=== PATIENT | female | born 1975 | race Caucasian/White ===

== ENCOUNTER 2018-07-02 05:37 | Day surgery (SDC) | payer MEDICAID ==
[2018-07-01 14:44] LABS: BASOPHILS % (AUTO) 0.7 % (0-1); EOSINOPHILS # (AUTO) 0.1 X10'3 (0-0.9); EOSINOPHILS % (AUTO) 1.4 % (0-6); LYMPHOCYTES # (AUTO) 2.4 X10'3 (1.1-4.8); LYMPHOCYTES % (AUTO) 36.2 % (21-51); MEAN CORPUSCULAR HEMOGLOBIN 30.5 PG (27.0-31.0); MEAN CORPUSCULAR HGB CONC 33.5 g/dL (33.0-36.5); MEAN CORPUSCULAR VOLUME 90.9 FL (78-98); MEAN PLATELET VOLUME 7.6 FL (7.4-10.4); MONOCYTES # (AUTO) 0.4 X10'3 (0-0.9); MONOCYTES % (AUTO) 6.1 % (2-12); NEUTROPHILS # (AUTO) 3.7 X10'3 (1.8-7.7); NEUTROPHILS % (AUTO) 55.6 % (42-75); PRE OP HEMATOCRIT 40.4 % (35.0-45.0); PRE OP HEMOGLOBIN 13.5 g/dL (12.0-16.0); PRE OP PLATELET COUNT 403 X10'3 (140-440); RED BLOOD COUNT 4.44 X10'6 (4.20-5.60); RED CELL DISTRIBUTION WIDTH 13.3 % (11.5-14.5)
[2018-07-01 15:05] LABS: ALBUMIN 3.6 G/DL (3.4-5.0); ALBUMIN/GLOBULIN RATIO 0.9 (1.1-1.5); ALKALINE PHOSPHATASE 51 IU/L (46-116); BLOOD UREA NITROGEN 10 MG/DL (7-18); BUN/CREATININE RATIO 13.3 (6.6-38.0); CALCIUM 9.2 MG/DL (8.5-10.1); CHLORIDE 104 MMOL/L (99-107); CREATININE 0.75 MG/DL (0.40-0.90); PRE OP ALT 21 U/L (30-65); PRE OP ANION GAP 14 (8-16); PRE OP AST 14 U/L (10-37); PRE OP BILIRUB, TOTAL 0.2 MG/DL (0.0-1.0); PRE OP GLUCOSE 115 MG/DL (70-104); PRE OP POTASSIUM 3.8 MMOL/L (3.4-5.1); PRE OP SODIUM 141 MMOL/L (135-145); TOTAL CARBON DIOXIDE 22.6 MMOL/L (24-32); TOTAL PROTEIN 7.6 G/DL (6.4-8.2); eGFR 84 ML/MIN
[~2018-07-02] VITALS: Ht 157.5 cm; Wt 80.0 kg
[2018-07-02] VITALS (10 sets, daily range): BP systolic 101–118; BP diastolic 46–86
[~2018-07-02 05:37] MED LIST: NO HOME MEDS; cefazolin/dext.iso 2gm/50ml 50 ML IV ONE; famotidine 20mg tablet PO ONE; ringers solution, lacted 1,000 ML IV SCH
[2018-07-02] MEDS ORDERED: ROPIVAcaine 0.5% (5mg/ml) 30ml vial ONE (07:01)
[2018-07-02] MEDS ORDERED: cloNIDine hcl/PF 100mcg/ml inj ONE (07:01)
[2018-07-02] MEDS ORDERED: midazolam 2 mg/2 ml injection ONE (07:06)
[2018-07-02] MEDS ORDERED: fentaNYL/PF 50MCG/1 ML 2ML syringe ONE (07:06)
[2018-07-02] MEDS ORDERED: BUPIVAcaine/PF 2.5mg/ml (0.25%) 10ml vial ONE (07:07)
[2018-07-02] MEDS ORDERED: LIDOcaine 2% (20mg/ml) 5ml vial ONE (07:09)
[2018-07-02] MEDS ORDERED: ondansetron/PF 4mg/2ml inj ONE (07:09)
[2018-07-02] MEDS ORDERED: propofol inj 20 ML IV ONE (07:09)
[2018-07-02] MEDS ORDERED: dexamethasone sod phosphate 4mg/ml inj. ONE (07:09)
[2018-07-02] MEDS ORDERED: sevoflurane 250ml liquid IH ONE (07:10)
[2018-07-02] MEDS ORDERED: ePHEDrine 50MG/ML INJ. ONE (07:46)
[2018-07-02] MEDS ORDERED: ROPIVAcaine 0.2%/PF PAIN PUMP 400 ML IJ SCH (08:08)
[2018-07-02] MEDS ORDERED: ringers solution, lacted 1,000 ML IV SCH (08:09)
[2018-07-02] MEDS ORDERED: morphine 4 MG/ML inj SYRINge IV PRN ×2 (08:10)
[2018-07-02] MEDS ORDERED: meperidine/PF 25mg/ml syringe IV PRN ×2 (08:10)
[2018-07-02] MEDS ORDERED: enalaprilat dihydrate 2.5mg/2ml vial IV PRN (08:10)
[2018-07-02] MEDS ORDERED: hydrALAZINE 20mg/ml inj. IV PRN (08:10)
[2018-07-02] MEDS ORDERED: ondansetron/PF 4mg/2ml inj IV PRN (08:10)
--- NOTE | 2018-07-02 08:40 | NUR ---
Received from OR via BED , accompanied by Anesthesiologist DR newell and report given by Anesthesiolgist. PATIENT WAKING UP, DENIES PAIN, V/S WNL, NEUROVASCULAR CHECKS INTACT, 20G PIV LUE , DRESSING TO RIGHT shoulder cdi with pain pump on que at 8,
[2018-07-02] MEDS ORDERED: HYDROcodone/acetaminophen 10/325mg tab PO PRN (08:55)
--- NOTE | 2018-07-02 10:00 | NUR ---
PATIENT A&OX4, DENIES PAIN, V/S WNL, NEUROVASCULAR CHECKS INTACT, 20G PIV LUE D/C , DRESSING TO RIGHT shoulder cdi with pain pump on que at 8, PATIENT WAS GIVEN INSTRUCTION ON USE OF THE ONQUE, . I HAVE REVIEWED D/C INSTRUCTIONS WITH PATIENT AND FAMILY AND THEY HAVE VERBALIZED UNDERSTANDING. PATIENT D/C HOME WITH ALL BELONGINGS AND FAMILY GAVE TRANSPORT HOME.
== END 2018-07-02 10:00 | disposition home or self-care (01) ==
LOC: PAS 05:37
PROVIDERS: ATTEND Orthopaedic Surgery
DX: M75.41 Impingement syndrome of right shoulder (principal); M75.51 Bursitis of right shoulder; M19.011 Primary osteoarthritis, right shoulder; M65.811 Other synovitis and tenosynovitis, right shoulder; G89.29 Other chronic pain; E66.9 Obesity, unspecified; G89.18 Other acute postprocedural pain; Z68.32 Body mass index [BMI] 32.0-32.9, adult; Z79.891 Long term (current) use of opiate analgesic; Z91.040 Latex allergy status; Z98.890 Other specified postprocedural states; Z79.899 Other long term (current) drug therapy
CPT/HCPCS: 29822; 36415; 64450; 80053; 82948; 85025; A6449; J0690; J0735; J1100; J2001; J2250; J2405; J2704; J2795; J3010; J3490; J7120; A4565; A7000; J7030